=== PATIENT | male | born 1955 | race Caucasian/White ===

== ENCOUNTER → 2017-01-26 | Outpatient (CLI) | payer OTHER ==
--- NOTE | 2017-01-26 07:40 | RAD ---
Indication: Elevated liver function tests and renal failure. The pancreas is unremarkable. The IVC is unremarkable. Aorta is nonaneurysmal. The liver is normal in size. There is homogeneous echotexture. No liver mass is identified. The portal vein is patent and shows normal direction of flow. The gallbladder is without stones or sludge. No wall thickening or pericholecystic fluid is identified. No biliary ductal dilatation is detected. Spleen is enlarged at 15.1 cm. The kidneys are without evidence of hydronephrosis or calculi. There is no ascites. Impression: Splenomegaly. No other significant abnormality is detected.
== END | disposition home or self-care (01) ==
LOC: US 06:32
PROVIDERS: ATTEND Internal Medicine
DX: N17.9 Acute kidney failure, unspecified (principal); R79.89 Other specified abnormal findings of blood chemistry; R16.1 Splenomegaly, not elsewhere classified
CPT/HCPCS: 76700